=== PATIENT | female | born 1970 | race Caucasian/White ===

== ENCOUNTER 2022-01-03 19:21 | Emergency (ER) | payer BC ==
[~2022-01-03] VITALS: Ht 157.5 cm; Wt 77.1 kg
[2022-01-03 19:30] VITALS: BP_SYST 111
[2022-01-03 20:56] LABS: BASOPHILS # (AUTO) 0.1 K/uL (0.0-0.2); BASOPHILS % (AUTO) 1.1 % (0.0-2.0); EOSINOPHILS # (AUTO) 0.7 K/uL (0.0-0.4); EOSINOPHILS % (AUTO) 10.3 % (0.0-4.0); HEMATOCRIT 40.1 % (36-48); HEMOGLOBIN 13.6 g/dL (12.0-16.0); LYMPHOCYTES % (AUTO) 30.7 % (20.5-51.5); MEAN CORPUSCULAR HEMOGLOBIN 32 pg (27-31); MEAN CORPUSCULAR HGB CONC 34 % (32-36); MEAN CORPUSCULAR VOLUME 94 fL (79.0-98.0); MONOCYTES # (AUTO) 0.5 K/uL (0.0-1.0); MONOCYTES % (AUTO) 7.9 % (1.7-9.3); NEUTROPHILS # (AUTO) 3.3 K/uL (1.8-7.7); PLATELET COUNT (AUTO) 171 K/uL (130-430); RED BLOOD CELL COUNT(AUTO) 4.25 MIL/uL (4.2-6.2); RED CELL DISTRIBUTION WIDTH 14.2 % (9.0-15.0); WHITE BLOOD COUNT (AUTO) 6.5 K/uL (4.8-10.8)
[2022-01-03 20:59] LABS: CALCIUM 8.3 mg/dL (8.4-11.0); CREATININE 0.8 mg/dL (0.55-1.30); POTASSIUM 3.5 mmol/L (3.5-5.1)
[2022-01-03 21:05] LABS: ALBUMIN 3.4 g/dL (3.4-4.8); TOTAL BILIRUBIN 0.1 mg/dL (0.0-1.0)
--- NOTE | 2022-01-03 21:10 | NUR ---
Patient to ER bed [facility] to [facility] for evaluation. Side rails up. Report given to Gregoria RAMOS.
--- NOTE | 2022-01-03 21:12 | NUR ---
Patient brought in for diffuse abdominal pain radiating to her back. Patient report was seen at Urgent care and was prescribed Protonix. Patient denies nausea, vomiting, diarrhea, constipation, chest pain, shortness of breath, or any other medical complaints at this time.
--- NOTE | 2022-01-03 21:13 | NUR ---
ER at bedside examining patient.
--- NOTE | 2022-01-03 22:02 | NUR ---
medicated per md. patient [facility].
[2022-01-03] MEDS: MAG HYDROX/AL HYDROX/SIMETH 30 ML, LIDOCAINE VISCOUS 2% 15ML (PO) 15 ML, DICYCLOMINE HC... PO ONE ×3 (22:05)
--- NOTE | 2022-01-03 22:38 | NUR ---
Dr. Hernandez at bedside discussing results with patient
--- NOTE | 2022-01-03 23:36 | NUR ---
patient off unit to ct scan.
--- NOTE | 2022-01-03 23:42 | NUR ---
patient returned from ct scan in stable condition
[2022-01-04] MEDS ORDERED: DOCU-144 PO (00:53)
[2022-01-04] MEDS ORDERED: ANT30 PO (00:53)
[2022-01-04] MEDS ORDERED: SENN8.6T19 PO (00:53)
[2022-01-04] MEDS: DOCUSATE SODIUM 100 MG CAPSULE PO ONE (01:03)
[2022-01-04] MEDS: KETOROLAC TROMETHAMINE 30 MG VIAL IM ONE (01:04)
[2022-01-04 01:05] VITALS: BP_SYST 122
--- NOTE | 2022-01-04 01:05 | NUR ---
Patient given written and verbal discharge instructions and verbalizes understanding. ER MD discussed with patient the results and treatment provided. Patient in stable condition. ID arm band removed. Rx of maalox, colace, senna given. Patient educated on pain management and to follow up with PMD. Pain Scale 0/10 Opportunity for questions provided and answered. Medication side effect fact sheet provided.
== END 2022-01-04 01:05 | disposition home or self-care (01) ==
LOC: SED 19:21
DX: K59.00 Constipation, unspecified (principal); Z79.899 Other long term (current) drug therapy
CPT/HCPCS: 36415; 74176; 76376; 76705; 80053; 81002; 81025; 83690; 85025; 96372; 99284; J1885; J2001